=== PATIENT | male | born 1990 | race Hispanic/Latino ===

== ENCOUNTER 2022-09-23 02:12 | Emergency (ER) | payer OTHER ==
[~2022-09-23] VITALS: Ht 170.2 cm; Wt 81.2 kg
[2022-09-23 02:14] VITALS: BP 152/73
== END 2022-09-23 03:20 ==
LOC: EDH 02:12
DX: Z01.83 Encounter for blood typing (principal); Z53.21 Procedure and treatment not carried out due to patient leaving prior to being seen by health care provider

== ENCOUNTER 2024-08-31 14:33 | Emergency (ER) | payer SELFPAY ==
[~2024-08-31] VITALS: Ht 165.1 cm; Wt 81.6 kg
[2024-08-31 14:58] VITALS: BP 128/83; PULSE 83; RESP 20; TEMP 97.8; O2SAT 99
[2024-08-31] MEDS: FAMOTIDINE 20MG TAB PO ONE (15:05)
[2024-08-31] MEDS: MAG/ALUM/SIMETH 30 ML UDCUP PO ONE (15:05)
[2024-08-31 15:13] LABS: APPEARANCE,URINE CLEAR (CLEAR); BILIRUBIN,URINE NEGATIVE (NEGATIVE); COLOR,URINE YELLOW (YELLOW); GLUCOSE, URINE (UA) NEGATIVE (NEGATIVE); KETONES,URINE NEGATIVE (NEGATIVE); LEUKOCYTE ESTERASE ,URINE NEGATIVE Leu/uL (NEGATIVE); NITRATE,URINE NEGATIVE (NEGATIVE); OCCULT BLOOD,URINE NEGATIVE (NEGATIVE); PH,URINE 6.5 (5.0-8.0); PROTEIN,URINE 10 mg/dL (NEGATIVE)
--- NOTE | 2024-08-31 15:14 | ERN ---
General Chief Complaint: Abdominal Pain Stated Complaint: ABDOMINAL PAIN, VOMITTING Time Seen by MD: 14:34 History of Present Illness Initial Comments 34-year-old male who presents for left upper quadrant abdominal pain and left- sided abdominal pain for the last five days. Patient reports that he feels swollen from the inside. . He reports some nausea. No vomiting. No fevers. No diarrhea. No urinary symptoms. He denies any medical history. He has not taken any medications. He is p.o. tolerant needing a normal diet. Food isn't appear to affect the discomfort. He has no cough congestion or URI type symptoms. Surgical history: Appendectomy, right ankle injury. Allergies: Coded Allergies: No Known Drug Allergies (Unverified Allergy, Unknown, 09/23/22) Past Medical History Past Medical History: Anxiety, High Cholesterol Past Surgical History: None ROS Dictation VITAL SIGNS: Reviewed. GENERAL APPEARANCE: Alert, oriented x3, no acute distress, obese. HEAD AND FACE: Non-traumatic. EYES: PERRL, pink conjunctivas, eyelid no trauma, anterior chamber clear. EARS: Pinnas intact and no signs of trauma or erythema. Ear canals clear and no discharge. TMs no erythema. NOSE: No discharge, no bleeding. OROPHARYNX: Mouth normal, teeth no caries, tongue pink. Pharynx clear, no erythema. Tonsils no exudates, no abscesses noted. Mucous membrane moist. NECK: Supple, non-tender, no thyromegaly, no masses, no JVD, no bruits. BREAST: Deferred. CHEST: No tenderness, no crepitus, no paradoxical movement, no retractions. LUNGS: Clear, well-ventilated, symmetric, no rales, no wheezing, no rhonchi, no stridor, good breath sounds bilaterally. HEART: Regular rate, regular rhythm, no murmur, no gallops. VASCULAR: No peripheral edema. ABDOMEN: Soft, positive bowel sounds, nondistended, no guarding, nontender, no rebound, no masses no hepatomegaly, no splenomegaly, no Jane's sign, no hernias. RECTAL: Deferred. GENITAL: Deferred. NEUROLOGICAL: Normal speech, gross motor function intact, gross sensory function intact. MUSCULOSKELETAL: Neck nontender, full range of motion, back nontender, full range of motion. EXTREMITIES: Nontender, full range of motion. SKIN: Color pink, dry, no turgor, no rash, no lacerations, no abrasions, no contusions. LYMPHATICS: Deferred. Physical Exam Physical Exam Dictation CONSTITUTIONAL: No chills, no fever, no weakness, no diaphoresis, no malaise. HEAD/FACE: No signs of trauma. EENT: No eye pain, no blurred vision, no tearing, no double vision, no ear pain, no ear discharge, no nose pain, no nasal congestion, no throat pain, no throat swelling, no mouth pain. RESPIRATORY: No cough, no orthopnea, no SOB, no stridor, no wheezing. CARDIOVASCULAR: No chest pain, no edema, no palpitations, no syncope. GASTROINTESTINAL/ABDOMINAL: No abdominal pain, no constipation, no diarrhea, no nausea, no vomiting. GENITOURINARY: No abnormal discharge, no dysuria, no frequent urination, no hematuria. No complaints of pain in the genitals. MUSCULOSKELETAL: No back pain, no gout, no joint pain, no joint swelling, no muscle pain, no muscle stiffness, no neck pain. INTEGUMENTARY: No change in color, no change in hair/nails, no dryness, no lesion, no lumps, no rash. NEUROLOGICAL/PSYCH: No anxiety, not depressed, no emotional problem, no hea dache, no numbness, no pre-existing deficit, no history of seizures, no tremors, no weakness. HEMATOLOGIC/LYMPHATIC: Not anemic, no history of blood clots, no apparent bleeding, no bruising, glands not swollen. All Systems Negative, Except as Noted. Results Laboratory and Microbiology Lab and Micro Result Laboratory Tests Test 08/31/24 15:00 08/31/24 15:31 Urine Color YELLOW (YELLOW) Urine Appearance CLEAR (CLEAR) Urine pH 6.5 (5.0-8.0) Urine Specific [place] 1.024 (1.001-1.031) Urine Protein 10 mg/dL (NEGATIVE) H Urine Glucose (UA) NEGATIVE mg/dL (NEGATIVE) Urine Ketones NEGATIVE mg/dL (NEGATIVE) Urine Occult Blood NEGATIVE (NEGATIVE) Urine Nitrate NEGATIVE (NEGATIVE) Urine Bilirubin NEGATIVE mg/dL (NEGATIVE) Urine Urobilinogen 2.0 mg/dL (0.2-1.0) H Urine Leukocyte Esterase NEGATIVE Seth/uL Urine RBC 0-1 /HPF (0-1) Urine WBC 0-1 /HPF (0-1) Urine Squamous Epithelial Cells RARE /HPF (0-2) Urine Bacteria None /HPF (None Seen) White Blood Count 5.5 K/uL (4.8-10.8) Red Blood Count 4.82 MIL/uL (4.50-6.20) Hemoglobin 16.2 g/dL (14.0-18.0) Hematocrit 46.5 % (42-54) Mean Corpuscular Volume 96.5 fL (79-99) Mean Corpuscular Hemoglobin 33.6 pg (27.0-33.0) H Mean Corpuscular Hemoglobin Concent 34.8 g/dL (32.0-36.0) Red Cell Distribution Width 12.0 % (11.0-15.5) Platelet Count 218 K/uL (130-400) Mean Platelet Volume 10.8 fL (7.5-10.5) H Immature Granulocyte % (Auto) 0.2 % (0-1) Neutrophils (%) (Auto) 57.5 % (40.0-77.0) Lymphocytes (%) (Auto) 26.0 % (21.0-51.0) Monocytes (%) (Auto) 9.5 % (3.0-13.0) Eosinophils (%) (Auto) 5.5 % (0.0-8.0) Basophils (%) (Auto) 1.3 % (0.0-5.0) Neutrophils # (Auto) 3.2 K/uL (1.8-7.7) Lymphocytes # (Auto) 1.4 K/uL (1.0-4.8) Monocytes # (Auto) 0.5 K/uL (0.1-1.0) Eosinophils # (Auto) 0.30 K/uL (0.00-0.70) Basophils # (Auto) 0.07 K/uL (0.00-0.20) Absolute Immature Granulocyte (auto 0.01 K/uL (0-1) Nucleated Red Blood Cells 0.0 % (0.0-0.19) Sodium Level 142 mmol/L (136-145) Potassium Level 4.2 mmol/L (3.5-5.1) Chloride Level 104 mmol/L (101-111) Carbon Dioxide Level 30 mmol/L (21-32) Blood Urea Nitrogen 10 mg/dL (7-18) Creatinine 0.8 mg/dL (0.5-1.3) Glomerular Filtration Rate Calc 118 mL/min (>90) Random Glucose 91 mg/dL (70-105) Total Calcium 9.0 mg/dL (8.5-10.1) Total Bilirubin 0.9 mg/dL (0.2-1.0) Direct Bilirubin 0.1 mg/dL (0.0-0.3) Aspartate Amino Transf (AST/SGOT) 260 U/L (10-37) H Alanine Aminotransferase (ALT/SGPT) 520 U/L (12-78) H Alkaline Phosphatase 113 U/L (50-136) Total Protein 7.7 g/dL (6.0-8.3) Albumin 4.1 g/dL (3.5-5.0) Lipase 54 U/L (16-77) ED Course Orders Procedure Category Date Status Time Cbc With Differential LAB 08/31/24 Complete 14:43 Urinalysis Profile LAB 08/31/24 Complete 14:43 Lipase LAB 08/31/24 Complete 14:43 Basic Metabolic Panel LAB 08/31/24 Complete 14:43 Hepatic Function Panel LAB 08/31/24 Complete 14:43 Famotidine 20mg Tab PHA 08/31/24 Complete (Pepcid 20mg Tab) 15:00 Mag/Alum/Simeth 30ml PHA 08/31/24 Complete (Maalox Plus 30ml) 15:00 Us Abdominal Ruq\Ltd US 08/31/24 Taken 16:04 Current Medications Medications (Trade) Dose Ordered Sig/Saurav Route PRN Reason Start Time Stop Time Status Last Admin Dose Admin Al Hydroxide/Mg Hydroxide (MAALox PLUS 30ML) 30 ml ONCE ONCE PO 08/31/24 15:00 08/31/24 15:01 DC 08/31/24 15:05 Famotidine (Pepcid 20mg Tab) 20 mg ONCE ONCE PO 08/31/24 15:00 08/31/24 15:01 DC 08/31/24 15:05 Vital Signs Date Time Temp Pulse Resp B/P (MAP) Pulse Ox O2 Delivery O2 Flow Rate FiO2 08/31/24 14:58 97.9 83 20 128/83 99 Room Air* 0 21 08/31/24 14:36 97.9 83 20 128/83 99 Room Air 0 DX & DISP Disposition: Discharge Departure Impression: Primary Impression: Elevated liver enzymes Condition: Stable Scripts Dicyclomine HCl (Bentyl) 20 Mg Tab 1 TAB PO BID for abdominal bloating for 10 Days, #20 TAB 0 Refills Prov: JACINTA LOVE DO 08/31/24 Additional Instructions: You have elevated liver enzymes which indicates inflammation of the liver. The rest of your lab work (CBC, BMP, lipase) is unremarkable. The ultrasound does not show any stones or major abnormalities other than a fatty liver. Reduce your alcohol intake. Avoid Tylenol. You can take ibuprofen for pain. This medication is over the counter. I've also prescribed bentyl to use for pain. I recommend that you follow up with your doctor in 72 hours for re-evaluation. Return to the emergency department as needed. Referrals: SELF,REFERRAL (PCP) JACINTA LOVE DO Aug 31, 2024 15:13
[2024-08-31 15:26] LABS: ADD UA MICROSCOPIC YES
[2024-08-31 15:28] LABS: MUCUS,URINE RARE LPF (None Seen); RBC,URINE 0-1 /HPF (0-1); SQUAMOUS EPITHELIAL CELL,UR RARE /HPF (0-2); WBC,URINE 0-1 /HPF (0-1)
[2024-08-31 15:45] LABS: BASOPHILS # (AUTO) 0.07 K/uL (0.00-0.20); BASOPHILS % (AUTO) 1.3 % (0.0-5.0); EOSINOPHILS % (AUTO) 5.5 % (0.0-8.0); HEMATOCRIT 46.5 % (42-54); IMMATURE GRANULOCYTE ABSOLUTE 0.01 K/uL (0-1); LYMPHOCYTES # (AUTO) 1.4 K/uL (1.0-4.8); MEAN CORPUSCULAR HEMOGLOBIN 33.6 pg (27.0-33.0); MEAN CORPUSCULAR HGB CONC 34.8 g/dL (32.0-36.0); MEAN CORPUSCULAR VOLUME 96.5 fL (79-99); MONOCYTES # (AUTO) 0.5 K/uL (0.1-1.0); MONOCYTES % (AUTO) 9.5 % (3.0-13.0); NEUTROPHILS # (AUTO) 3.2 K/uL (1.8-7.7); NEUTROPHILS % (AUTO) 57.5 % (40.0-77.0); PLATELET COUNT (AUTO) 218 K/uL (130-400); RED BLOOD CELL COUNT(AUTO) 4.82 MIL/uL (4.50-6.20); WHITE BLOOD COUNT (AUTO) 5.5 K/uL (4.8-10.8)
[2024-08-31 15:46] LABS: CREATININE 0.8 mg/dL (0.5-1.3); POTASSIUM 4.2 mmol/L (3.5-5.1)
[2024-08-31 15:51] LABS: ALBUMIN 4.1 g/dL (3.5-5.0); BILIRUBIN,DIRECT 0.1 mg/dL (0.0-0.3); BILIRUBIN,TOTAL 0.9 mg/dL (0.2-1.0); TOTAL PROTEIN, SERUM 7.7 g/dL (6.0-8.3)
[2024-08-31] MEDS ORDERED: DICY20TA2 PO (17:37)
--- NOTE | 2024-08-31 17:47 | HMCIMG ---
US ABDOMINAL RUQ\E\LTD HISTORY: Elevated liver enzymes COMPARISON: None TECHNIQUE: Right upper quadrant abdominal ultrasound study was performed. FINDINGS: Liver measures 14.3 cm. The visualized portion of the pancreas is within normal limits. Liver is echogenic consistent with liver parenchymal disease. No gallstone is seen. Common duct measures 2 mm. No evidence of gallbladder wall thickening is seen. Right kidney measures 10.4 x 6.5 x 4.8 cm. No hydronephrosis is seen of the right kidney. IMPRESSION: 1. No gallstones or ductal dilatation is seen. 2. No hydronephrosis is seen.
== END 2024-08-31 18:40 | disposition home or self-care (01) ==
LOC: EDH 14:33
DX: R74.01 Elevation of levels of liver transaminase levels (principal); E78.00 Pure hypercholesterolemia, unspecified; F41.9 Anxiety disorder, unspecified
CPT/HCPCS: 36415; 76705; 80048; 80076; 81001; 83690; 85025; 99284

== ENCOUNTER 2024-12-16 11:14 | Emergency (ER) | payer SELFPAY ==
[~2024-12-16] VITALS: Ht 162.6 cm; Wt 81.6 kg
[~2024-12-16 11:14] MED LIST: DICY20TA2 PO
--- NOTE | 2024-12-16 11:26 | ERN ---
ED Note History of Present Illness Stated Complaint: RED EYES Chief Complaint: Eye Problems Time Seen by MD: 11:15 Dictation: PATIENT IS A 34-YEAR-OLD MALE HERE WITH COMPLAINTS OF BILATERAL EYE REDNESS AND FOREIGN BODY SENSATION WITH GREEN DRAINAGE ONSET TWO DAYS PRIOR TO ARRIVAL. HE STATES HE WAS MOWING ON A TRACTOR HIS LAWN WITHOUT EYE PROTECTION. WHEN HE WENT IN THAT NIGHT STARTED HAVING DISCHARGE FROM HIS EYES. HE DOES DENIES ANY HEADACHE SAID HE HAS MILD EYE DISCOMFORT. DOES NOT HAVE A PRIMARY CARE DOCTOR Allergies: Coded Allergies: No Known Drug Allergies (Unverified Allergy, Unknown, 09/23/22) Home Meds Active Scripts Ibuprofen (Ibuprofen 800 mg Tab) 800 Mg Tab, 800 MG PO Q8H PRN for fever or pain, #30 TAB 0 Refills Prov:ART FERRARA NP 12/16/24 Moxifloxacin HCl (Vigamox 0.5% Ophth Soln) 0.5 % Opsol, 1 DROP OU TID for 7 Days, #5 ML Prov:ART FERRARA NP 12/16/24 Dicyclomine HCl (Bentyl) 20 Mg Tab, 1 TAB PO BID for abdominal bloating for 10 Days, #20 TAB 0 Refills Prov:JACINTA LOVE DO 08/31/24 Past Medical History Past Medical History: Anxiety, High Cholesterol Surgical History: None RN Note Reviewed/Agreed w/PFSH: Yes Review of System Dictation CONSTITUTIONAL: NEGATIVE EXCEPT FOR HPI HEAD/FACE: NEGATIVE EXCEPT FOR HPI EENT: NEGATIVE EXCEPT FOR HPI FOREIGN BODY SENSATION BILATERAL EYES WITH GREEN DISCHARGE REDNESS RESPIRATORY: NEGATIVE EXCEPT FOR HPI GASTROINTESTINAL/ABDOMINAL: NEGATIVE EXCEPT FOR HPI GENITOURINARY: NEGATIVE EXCEPT FOR HPI MUSCULOSKELETAL: NEGATIVE EXCEPT FOR HPI INTEGUMENTARY: NEGATIVE EXCEPT FOR HPI NEUROLOGICAL/PSYCH: NEGATIVE EXCEPT FOR HPI HEMATOLOGIC/LYMPHATIC: NEGATIVE EXCEPT FOR HPI ALL SYSTEMS NEGATIVE, EXCEPT NOTED ABOVE. 13 POINT REVIEW OF SYSTEMS ASSESSED AND ALL NEGATIVE EXCEPT FOR ABOVE. Initial Vital Sign VS Vital Signs Date Time Temp Pulse Resp B/P (MAP) Pulse Ox O2 Delivery O2 Flow Rate FiO2 12/16/24 11:20 98.1 76 16 132/91 96 Room Air 0 12/16/24 11:49 21 Physical Exam Dictation VITAL SIGNS REVIEWED GENERAL APPEARANCE: ALERT, ORIENTED X 3, NO ACUTE DISTRESS, WELL DEVELOPED, NOURISHED. HEAD AND FACE: NON-TRAUMATIC. EYES: PERRL, BILATERAL CONJUNCTIVA INJECTED, EYELID NO TRAUMA, ANTERIOR CHAMBER WITH ARCUS SENILIS. EARS: PINNAS INTACT AND NO SIGNS OF TRAUMA OR ERYTHEMA EAR CANALS CLEAR AND NO DISCHARGE TM NO ERYTHEMA NOSE: NO DISCHARGE, NO BLEEDING. OROPHARYNX: MOUTH NORMAL, TONGUE PINK, PHARYNX CLEAR,NO ERYTHEMA, TONSILS NO EXUDATES, NO ABSCESSES NOTED, MUCOUS MEMBRANE MOIST NECK: SUPPLE, NON-TENDER, NO THYROMEGALY, NO MASSES, NO JVD, NO BRUITS BREAST:DEFERRED CHEST:NO TENDERNESS, NO CREPITUS, NO PARADOXICAL MOVEMENT, NO RETRACTIONS LUNGS:CLEAR, WELL-VENTILATED, SYMMETRIC, NO RALES, NO WHEEZING, NO RHONCHI, NO STRIDOR, GOOD BREATH SOUNDS BILATERALLY HEART: REGULAR RATE, REGULAR RHYTHM, NO MURMUR, NO GALLOPS VASCULAR: NO PERIPHERAL EDEMA, ABDOMEN: SOFT, POSITIVE BOWEL SOUNDS, NONDISTENDED, NO GUARDING, NONTENDER, NO REBOUND, NO MASSES NO HEPATOMEGALY, NO SPLENOMEGALY, NO CURRIE'S SIGN, NO HERNIAS. RECTAL: DEFERRED GENITAL: DEFERRED NEUROLOGICAL: NORMAL SPEECH, MOTOR FUNCTION INTACT, SENSORY FUNCTION INTACT MUSCULOSKELETAL: NECK NONTENDER, FULL RANGE OF MOTION, BACK NONTENDER, FULL RANGE OF MOTION, EXTREMITIES: NONTENDER, FULL RANGE OF MOTION SKIN: COLOR PINK, DRY, NO TURGOR, NO RASH, NO LACERATIONS, NO ABRASIONS, NO CONTUSIONS. LYMPHATIC: DEFERRED Results (Laboratory/Radiology) Labs Reviewed?: Yes ED Course ED Course Orders Procedure Category Date Status Time Tetracaine Hcl PHA 12/16/24 Complete (Pontocaine 0.5% 11:30 Fluorescein Sodium PHA 12/16/24 Complete (Kedxv-S-Oxpzu At) 11:30 Ibuprofen 800 Mg Tab PHA 12/16/24 In Process (Motrin) 12:00 Current Medications Medications (Trade) Dose Ordered Sig/Saurav Route PRN Reason Start Time Stop Time Status Last Admin Dose Admin Fluorescein Sodium (Seubz-U-Otuiq At) 2 strip ONCE ONCE OP 12/16/24 11:30 12/16/24 11:31 DC 12/16/24 11:35 Ibuprofen (moTRIN) 800 mg ONCE ONCE PO 12/16/24 12:00 12/16/24 12:01 Tetracaine HCl (Pontocaine 0.5% Oph Soln) 2 drop ONCE ONCE OP 12/16/24 11:30 12/16/24 11:31 DC 12/16/24 11:35 Vital Signs Date Time Temp Pulse Resp B/P (MAP) Pulse Ox O2 Delivery O2 Flow Rate FiO2 12/16/24 11:49 98.2 74 16 126/88 100 Room Air* 0 21 12/16/24 11:20 98.1 76 16 132/91 96 Room Air 0 1140/EYE EXAM WAS COMPLETED PATIENT WILL BE STARTED ON VIGAMOX AND GIVEN THE NAME OF [facility]. IN ADDITION HE WAS STRONGLY ADVISED TO USE EYE PROTECTION GOGGLES WITH WORKING AROUND ANY MECHANIZED VEHICLE AND OR MOWING HIS LAWN. HE AGREED Medical Decision Making MDM MEDICAL DECISION-MAKING BASED ON PAIN MANAGEMENT AND I EXAMINATION OF BOTH EYES. PATIENT WILL BE TREATED WITH TETRACAINE, GIVEN IBUPROFEN FOR DISCOMFORT REFERRED TO [facility] WEDNESDAY Procedure Procedure Dictation: 7265/PROCEDURE EXPLAINED TO PATIENT AND HE AGREED TO PROCEED TWO DROPS TETRACAINE TO EACH EYE FLUORESCEIN STRIPS APPLIED TO EACH EYE EYES EXAMINED WITH WOOD'S LAMP UPPER LID EVERTED CORNEA BILATERALLY INTACT CONJUNCTIVA INJECTED BILATERALLY NO REMOVABLE FOREIGN BODIES NOTED PATIENT TOLERATED WELL DX & DISP Disposition: Discharge Departure Impression: Primary Impression: Acute conjunctivitis, bilateral Condition: Stable Scripts Ibuprofen (Ibuprofen 800 mg Tab) 800 Mg Tab 800 MG PO Q8H PRN for fever or pain, #30 TAB 0 Refills Prov: ART FERRARA ANODIZING LINE OPERATOR 12/16/24 Moxifloxacin HCl (Vigamox 0.5% Ophth Soln) 0.5 % Opsol 1 DROP OU TID for 7 Days, #5 ML Prov: ART FERRARA ANODIZING LINE OPERATOR 12/16/24 Additional Instructions: FOLLOW-UP WITH PRIMARY CARE PROVIDER IN 1 TO 2 DAYS. TAKE MEDICATIONS DIRECTED HERE IN THE EMERGENCY ROOM. OKAY TO CONTINUE HOME MEDICATIONS UNLESS OTHERWISE DISCUSSED DURING YOUR VISIT IN THE EMERGENCY ROOM TODAY. RETURN TO YOUR NEAREST EMERGENCY ROOM IF SYMPTOMS WORSEN OR IF THERE IS NO IMPROVEMENT. CALL 911 IF YOU NEED IMMEDIATE ASSISTANCE. TAKE TYLENOL OR MOTRIN ASVS-WHM-EHKDUYP NEEDED AND IF NO CONTRAINDICATIONS ARE PRESENT. INCREASE ORAL HYDRATION. A WOUND CULTURE OR URINE CULTURE WAS ORDERED HERE IN THE EMERGENCY ROOM DEPARTMENT PLEASE FOLLOW-UP WITH PRIMARY CARE PROVIDER AND ADVISE THEM TO GET REPEAT PORTS FROM OUR FACILITY. IF YOU HAD ANY SANDRA WRAP/SPLINTS T HAT WERE APPLIED HERE, PLEASE DO NOT REMOVE THEM UNTIL YOU SEE YOUR PRIMARY CARE OR SPECIALTY. STRONGLY SUGGEST WEARING EYE PROTECTION/GOGGLES WITH WORKING OUTDOORS AND MECHANIZED EQUIPMENT. USE EYEDROPS DIRECTED FOR SEVEN DAYS. FOLLOW UP WITH [facility], CALL FOR AN APPOINTMENT ON WEDNESDAY Referrals: SELF,REFERRAL (PCP) Time of Disposition: 11:43 I have reviewed the case, and I agree with, Diagnosis and Plan ART FERRARA NP Dec 16, 2024 11:26 JACINTA LOVE DO Dec 16, 2024 11:54
[2024-12-16] MEDS: TETRACAINE HCL 0.5% 4 ML OPHTH SOLN OP ONE (11:35)
[2024-12-16] MEDS: FLUORESCEIN SODIUM 1 STRIP STRIP OP ONE (11:35)
[2024-12-16] MEDS ORDERED: IBUP-2077 PO (11:44)
[2024-12-16] MEDS ORDERED: MOXIOS OU (11:44)
[2024-12-16 11:49] VITALS: BP 126/88; PULSE 74; RESP 16; TEMP 98.2; O2SAT 100
[2024-12-16] MEDS: ibuPROFEN 800 MG TAB PO ONE (11:53)
== END 2024-12-16 11:57 | disposition home or self-care (01) ==
LOC: EDH 11:14
DX: H10.33 Unspecified acute conjunctivitis, bilateral (principal); E78.00 Pure hypercholesterolemia, unspecified; F41.9 Anxiety disorder, unspecified; Z79.899 Other long term (current) drug therapy
CPT/HCPCS: 99283